=== PATIENT | female | born 1950 ===

== ENCOUNTER 2021-05-13 08:27 | Outpatient (CLI) | payer OTHER | END 2021-05-13 08:38 | disposition home or self-care (01) | LOC: MAMO-SONO 08:27 | DX: R92.1 Mammographic calcification found on diagnostic imaging of breast (principal); N64.59 Other signs and symptoms in breast; Z12.31 Encounter for screening mammogram for malignant neoplasm of breast ==

== ENCOUNTER 2021-05-13 09:59 | Outpatient (CLI) | payer OTHER | END 2021-05-13 10:02 | disposition home or self-care (01) | LOC: NUCLEAR 09:59 | DX: M79.662 Pain in left lower leg (principal); M79.661 Pain in right lower leg; R60.9 Edema, unspecified; Z13.820 Encounter for screening for osteoporosis; M81.0 Age-related osteoporosis without current pathological fracture ==